=== PATIENT | male | born 1945 | race Caucasian/White ===

== ENCOUNTER 2019-12-03 08:23 | Outpatient (CLI) | payer MEDICARE, SELFPAY | END 2019-12-03 08:24 | disposition home or self-care (01) | PROVIDERS: PCP Family Medicine; Visit Provider Internal Medicine Gastroenterology | DX: Z01.818 Encounter for other preprocedural examination (principal); Z11.59 Encounter for screening for other viral diseases | CPT/HCPCS: 87635; U0003 ==

== ENCOUNTER 2019-12-06 01:32 | Day surgery (SDC) | payer MEDICARE, SELFPAY ==
[2019-11-29 13:46] VITALS: BMI 29.3
[2019-12-06 06:23] VITALS: BP 157/89; PULSE 71; RESP 18; TEMP 36.9; O2SAT 99
[2019-12-06] MEDS: LACTATED RINGERS 1,000 ML 150 ML IV CONT (06:37)
--- NOTE | 2019-12-06 06:53 | WPDANESEPPF ---
Anes - Initial Pre Proc Eval Procedure: Operation Date: 12/06/19 07:30 Proposed Procedures p Screening Colonoscopy - Elia Jack MD Date/Time: 12/06/19 06:53 Surgeon: Elia Jack MD Pre Op Diagnosis: Neoplasm Screening Patient Data Age: 74 Gender: M Height: 1.7 m Weight: 83.2 kg Last Vital Signs Temp 36.9 C 12/06/19 06:23 Pulse 71 12/06/19 06:23 Resp 18 12/06/19 06:23 BP 157/89 H 12/06/19 06:23 Pulse Ox 99 12/06/19 06:23 Allergies Allergy/AdvReac Type Severity Reaction Status Date / Time Penicillins Allergy Unknown Unknown Verified 12/06/19 06:20 Home Medications Medication Instructions Recorded Confirmed Type albuterol sulfate 1 puff INHALATION QID PRN 11/29/19 11/29/19 History finasteride 5 mg PO DAILY 11/29/19 11/29/19 History magnesium 30 mg PO DAILY 11/29/19 11/29/19 History tamsulosin 0.4 mg PO DAILY 11/29/19 11/29/19 History ibuprofen 600 mg PO TID PRN 12/06/19 12/06/19 History methocarbamol 750 mg PO HS PRN 12/06/19 12/06/19 History omeprazole 40 mg PO DAILY 12/06/19 12/06/19 History Patient hx anesthesia problems: none Family hx anesthesia problems: none PMFSH Past Medical History Medical History (Updated 12/06/19 @ 06:54 by Murray Oneill DO) BPH (benign prostatic hyperplasia) Degenerative arthritis of knee, bilateral GOPI (obstructive sleep apnea) CPAP Social History Social History Smoking status: Former smoker Second hand tobacco smoke exposure: No Smoking end date: 07/18/06 Alcohol intake: never Additional living arrangements comments: -Sheri Hammonds Anes - Eval Final PreProcedure Day of Procedure 12/06/19 06:53 Patient weight: overweight Heart: regular rate and rhythm Lungs: clear to auscultation and normal air movement Airway: Mallampati scale class II Neurological: alert and oriented Last oral intake: >/= 8 hours ASA classification: III Emergent: no Anesthetic plan: proceed Anesthesia type and monitoring: general GIVS and standard monitoring Informed Consent: The patient's anesthetic plan and its attendant risks and benefits were discussed with the patient/family/POA. Questions were solicited and answers provided to the satisfaction of the patient/family/POA.
--- NOTE | 2019-12-06 07:00 | PM.HPGS ---
History of Present Illness History of Present Illness Consent: Risks, benefits, and alternatives have been discussed and questions answered. Patient agrees to proceed with procedure. Chief complaint: Neoplasm Screening Narrative: Mal Hammonds is a 74 year old W male Referred for screening colonoscopy secondary to family history of colon cancer in his brother diagnosed at age 62. Patient's last colonoscopy was 5 years ago. Patient is asymptomatic. [facility] Past Medical History Medical History BPH (benign prostatic hyperplasia) Degenerative arthritis of knee, bilateral GOPI (obstructive sleep apnea) CPAP Family History Family History Mother Hypertension Family history of diabetes mellitus in first degree relative Family history of coronary artery disease Sibling Hypertension Carcinoma of colon Family history of diabetes mellitus in first degree relative Family history of coronary artery disease Family history of lung cancer Patient's brother is Social History Social History Smoking status: Former smoker Second hand tobacco smoke exposure: No Smoking end date: 07/18/06 Alcohol intake: never Additional living arrangements comments: -Sheri Hammonds Meds Home Medications and Allergies Home Medications Medication Instructions Recorded Confirmed Type albuterol sulfate 1 puff INHALATION QID PRN 11/29/19 11/29/19 History finasteride 5 mg PO DAILY 11/29/19 11/29/19 History magnesium 30 mg PO DAILY 11/29/19 11/29/19 History tamsulosin 0.4 mg PO DAILY 11/29/19 11/29/19 History ibuprofen 600 mg PO TID PRN 12/06/19 12/06/19 History methocarbamol 750 mg PO HS PRN 12/06/19 12/06/19 History omeprazole 40 mg PO DAILY 12/06/19 12/06/19 History Allergies Allergy/AdvReac Type Severity Reaction Status Date / Time Penicillins Allergy Unknown Unknown Verified 12/06/19 06:20 Vital Signs Vital Signs - 24 hr 12/06/19 06:23 Temperature 36.9 C Pulse Rate 71 Respiratory Rate 18 Blood Pressure 157/89 H Pulse Oximetry 99 Exam Const: Orientation/consciousness: patient oriented x3 Resp: Auscultation: clear to auscultation bilaterally Cardio: Rate: regular rate Rhythm: regular rhythm Heart sounds: no murmurs GI: GI Palp: Yes Soft to palpation, No Tenderness to palpation present (GI), Yes No hepatosplenomegaly present and No Palpable mass present Auscultation: normal bowel sounds Neuro: General: patient oriented x3 and no focal motor deficits Extrem: General: no pedal edema Assessment and Plan Additional Plan Screening colonoscopy in high risk patient with a family history of colon cancer in brother
[2019-12-06 07:54] VITALS: BP 102/47; PULSE 60; RESP 18; O2SAT 98
[2019-12-06 08:04] VITALS: BP 94/54; PULSE 60; RESP 18; O2SAT 99
[2019-12-06 08:14] VITALS: BP 117/62; PULSE 61; RESP 18; O2SAT 99
== END 2019-12-06 08:22 | disposition home or self-care (01) ==
PROVIDERS: PCP Family Medicine; Visit Provider Internal Medicine Gastroenterology
PROC: 0DJD8ZZ Inspection of Lower Intestinal Tract, Via Natural or Artificial Opening Endoscopic (ICD-10-PCS; CPT 45378; principal; 2019-12-06 07:30)
DX: Z12.11 Encounter for screening for malignant neoplasm of colon (principal); K64.8 Other hemorrhoids; K64.4 Residual hemorrhoidal skin tags; K57.30 Diverticulosis of large intestine without perforation or abscess without bleeding; Z80.0 Family history of malignant neoplasm of digestive organs; G47.33 Obstructive sleep apnea (adult) (pediatric); N40.0 Benign prostatic hyperplasia without lower urinary tract symptoms; M17.0 Bilateral primary osteoarthritis of knee; Z87.891 Personal history of nicotine dependence
CPT/HCPCS: G0105; 87635; C9803; J2704; J7120; U0003

== ENCOUNTER → 2020-01-22 11:55 | Outpatient (CLI) | payer MEDICARE, SELFPAY ==
--- NOTE | ~2020-01-22 | XR_ITS ---
XR lumbar spine 2-3V DATE: 01/22/2020 13:21 INDICATION: Acute midline low back pain TECHNIQUE: AP, lateral and coned lateral lumbosacral views COMPARISON: None FINDINGS: Normal alignment of the lumbar spine. No fracture or bone destruction. No spondylolisthes is. Diffuse osteopenia. There is prominent degenerative disc disease at T12-L1, L1-2 and L5-S1. Moderate degenerative disc disease at L2-3. No fracture or bone destruction. No spondylolisthesis. The sacroiliac joints are intact. IMPRESSION: Degenerative changes; no fracture Reviewed, dictated and finalized at location B.
== END ==
PROVIDERS: PCP Family Medicine; Visit Provider Family Medicine
DX: M54.5 Low back pain (principal)
CPT/HCPCS: 72100

== ENCOUNTER 2022-05-17 17:43 | Emergency (ER) | payer MEDICARE, SELFPAY ==
--- NOTE | ~2022-05-17 | XR_ITS ---
EXAM: XR hand RT min 3V DATE: 05/17/2022 18:39 HISTORY: dog bite dorsal rt ulnar 5th metacarpal area . COMPARISON: 07/26/2019. FINDINGS: Mildly decreased mineralization. No fracture or dislocation. No lytic or blastic lesion. S cattered osteoarthritic changes, severe at the trapeziometacarpal joint. No erosion or periosteal harvey nge. Chondrocalcinosis. IMPRESSION: No acute osseous finding in the right hand. Reviewed, dictated and finalized at location K.
[2022-05-17 18:05] VITALS: BP 158/74; PULSE 67; RESP 16; TEMP 35.9; O2SAT 98
--- NOTE | 2022-05-17 18:15 | ED.ANIMALBIT ---
HPI - Animal Bite General Chief Complaint: Animal Bite Stated Complaint: Right Hand Animal Bite Time Seen by Provider: 05/17/22 18:15 Source: patient, RN notes reviewed and old records reviewed Mode of arrival: ambulatory Limitations: no limitations History of Present Illness HPI narrative: 77-year-old male presents to the [facility] with a right hand wound from a dog bite. Puncture wounds noted to the dorsal aspect right hand. Unsure of tetanus. Bruising swelling noted to the dorsal aspect of her hand. Has full range of motion. Capillary refill under 2 seconds in all 5 fingers. Sensation intact in all 5 fingers. 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 Related Data Patient tetanus UTD: No Home Medications Medication Instructions Recorded Confirmed albuterol sulfate 90 mcg/actuation 1 puff inhalation QID PRN 11/29/19 05/17/22 aerosol inhaler Shortness Of Breath finasteride 5 mg tablet 5 mg PO DAILY 11/29/19 05/17/22 magnesium 30 mg tablet 30 mg PO DAILY 11/29/19 05/17/22 tamsulosin 0.4 mg capsule 0.4 mg PO DAILY 11/29/19 05/17/22 ibuprofen 600 mg tablet 600 mg PO TID PRN Pain 12/06/19 05/17/22 methocarbamol 750 mg tablet 750 mg PO HS PRN Sleep 12/06/19 05/17/22 omeprazole 40 mg capsule,delayed 40 mg PO DAILY 12/06/19 05/17/22 release montelukast 10 mg tablet 10 mg PO DAILY 05/12/21 05/17/22 Allergies Allergy/AdvReac Type Severity Reaction Status Date / Time Penicillins Allergy Unknown Unknown Verified 05/17/22 18:12 Review of Systems Review of Systems: All systems reviewed & are unremarkable except as noted in HPI and below Constitutional: Constitutional: Reports no additional constitutional complaints, Denies chills and Denies fever(s) Eyes: Eyes: Reports no additional eye complaints ENT: Reports system reviewed and no additional complaints, except as documented Cardiovascular: Cardiovascular: Reports no additional cardiovascular complaints Respiratory: Respiratory: Reports no additional respiratory complaints Gastrointestinal: Gastrointestinal: Reports no additional gastrointestinal complaints Musculoskeletal: Musculoskeletal: Reports as per HPI Integumentary/Breasts: Skin/Breast: Reports as per HPI Neurologic: Reports system reviewed and no additional complaints, except as documented Psychiatric: Psychiatric: Reports no additional psychiatric complaints Allergic/Immunologic: Allergic/Immunologic: Reports no additional allergic/immunologic complaints PMFSH Past Medical History Medical History BPH (benign prostatic hyperplasia) Degenerative arthritis of knee, bilateral GOPI (obstructive sleep apnea) CPAP Family History Family History Mother Hypertension Family history of diabetes mellitus in first degree relative Family history of coronary artery disease Sibling Hypertension Carcinoma of colon Family history of diabetes mellitus in first degree relative Family history of coronary artery disease Family history of lung cancer Patient's brother is Social History Social History Smoking status: Former smoker Second hand tobacco smoke exposure: No Smoking end date: 07/18/06 Alcohol intake: never Additional living arrangements comments: -Sheri Hammonds Comments At the time of my signature, I reviewed and agree with the nursing past medical, surgical, social, and family history. There is no relevant family history pertinent to the patient complaint. Exam Const: General: healthy appearing, no acute distress, alert and well nourished Nutritional Appearance: well nourished Orientation/consciousness: patient oriented x3 Limitations: no limitations HENMT: Head: normal to inspection Ears: external ears normal Eyes: General: appearance normal, both eyes and all related structures Pupils: Equal, round and re
[2022-05-17] MEDS: TETANUS/DIPHTHERIA TOXOIDS ADSORB 0.5 ML VIAL (*BKC) IM (18:49)
== END 2022-05-17 19:15 | disposition home or self-care (01) ==
PROVIDERS: Emergency Provider Nurse Practitioner; PCP Family Medicine
DX: S61.451A Open bite of right hand, initial encounter (principal); Z79.1 Long term (current) use of non-steroidal anti-inflammatories (NSAID); Z87.891 Personal history of nicotine dependence; Z23 Encounter for immunization; W54.0XXA Bitten by dog, initial encounter
CPT/HCPCS: 73130; 90471; 90714; 99212; G0463

== ENCOUNTER → 2022-10-28 09:55 | Outpatient (CLI) | payer MEDICARE, SELFPAY ==
--- NOTE | ~2022-10-28 | MR_ITS ---
MRI of the left knee Clinical history: Pain Technique: Coronal proton density and proton density-weighted images, sagittal proton-density and T2 fat-sat images, and axial proton-density fat-saturated images were acquired. Findings: Anterior and posterior cruciate ligaments are intact. Medial collateral ligament and the la teral collateral ligament complex are intact. Popliteus tendon is intact. There is large horizontal tear of the posterior horn of the medial meniscus, with complex tearing ext ending into the body segment. Body segment is somewhat macerated and diminutive. No lateral meniscal tear identified. There is extensive high-grade chondromalacia on both sides of the medial compartment. There is focal high-grade chondromalacia the inferior aspect of the central femoral trochlea. There is high-grade ch ondral lesion along the medial patellar facet. Bone marrow signals are unremarkable. Extensor mechanism is intact. Small joint effusion present. There is a small ganglion cyst versus les s likely meniscal cyst extending posterior to the PCL. Impression: Large horizontal tear of the posterior medial meniscus, with complex tearing and maceration of the estevan dy segment. High-grade chondromalacia of the medial and patellofemoral compartments, as detailed above. Small ganglion cyst versus less likely meniscal cyst extending posterior to the PCL. Reviewed, dictated and finalized at location M. Impression: Large horizontal tear of the posterior medial meniscus, with complex tearing an d maceration of the body segment. High-grade chondromalacia of the medial and patellofemoral compartments, as de tailed above. Small ganglion cyst versus less likely meniscal cyst extending posterior to the PCL.
== END ==
PROVIDERS: PCP Orthopaedic Surgery; Visit Provider Orthopaedic Surgery
DX: S83.242A Other tear of medial meniscus, current injury, left knee, initial encounter (principal); M22.42 Chondromalacia patellae, left knee; T14.90XA Injury, unspecified, initial encounter
CPT/HCPCS: 73721

== ENCOUNTER → 2023-04-05 10:55 | Outpatient (CLI) | payer MEDICARE, SELFPAY ==
--- NOTE | ~2023-04-05 | MR_ITS ---
MRI of the right shoulder Technique: Axial proton-density fat-sat images, coronal proton density fat-sat and T2 fat-sat images, and sagittal T1-weighted and T2 fat-sat images were acquired. Clinical History: Calcific tendinitis Findings: There is mild AC joint degenerative change. Coracoclavicular, coracoacromial, and coracohum eral ligaments appear intact. There is full-thickness tear involving the posterior portion of the infraspinatus tendon and anterior portion of the infraspinatus tendon at the distal insertions, with the area of full-thickness tear m easuring approximately 1.0 x 1.0 cm. There is background moderate supraspinatus and infraspinatus ten dinosis. There is a small calcific deposit at the distalmost aspect of the infraspinatus tendon, comp atible with calcific tendinitis. Subscapularis tendon is intact with mild tendinosis. Tendon of the long head of the biceps is intact. No labral tear identified. Inferior glenohumeral ligament is intact. There is no significant glenohumeral joint effusion. No deg enerative change of the glenohumeral joint. No muscle atrophy or edema. Impression: 1.0 x 1.0 cm area of full-thickness tearing involving the posterior portion of the supraspinatus tend on and anterior portion infraspinatus tendon at their distal insertions. Small focus of calcific tendinitis at the posterior, distal insertion of the infraspinatus tendon. Moderate background rotator cuff tendinosis. Reviewed, dictated and finalized at [facility]. Impression: 1.0 x 1.0 cm area of full-thickness tearing involving the posterior portion of the supraspinatus tendon and anterior portion infraspinatus tendon at their dis emily insertions. Small focus of calcific tendinitis at the posterior, distal insertion of the in fraspinatus tendon. Moderate background rotator cuff tendinosis.
== END ==
PROVIDERS: PCP Orthopaedic Surgery; Visit Provider Orthopaedic Surgery
DX: M75.31 Calcific tendinitis of right shoulder (principal)
CPT/HCPCS: 73221

== ENCOUNTER 2023-05-16 00:36 | Day surgery (SDC) | payer MEDICARE, SELFPAY ==
[2023-05-09 15:07] VITALS: BMI 29.3
--- NOTE | 2023-05-09 15:08 | PC.NURSE ---
Report to the Outpatient Waiting Room, entrance under the green pavilion located off [facility], at time _0700_ on date _[id number]_. Planned Procedure Time: _0900_. Time changes happen often and if your time is changed the preop area will call you the afternoon before. - You and your visitor will be asked to self-screen and do not enter if you have any COVID symptoms. - A mask is optional within the hospital at this time. Patients may have clear liquids (water, carbonated beverages, clear teas, apple juice) until 3 hours prior to surgery with a maximum of 20 ounces. - No food from midnight until time of surgery Take the following medications with a SIP of water the morning of surgery: __None DO NOT STOP ANY OF YOUR OTHER PRESCRIPTION MEDICATIONS PRIOR TO SURGERY ?EXCEPT THE FOLLOWING Medications to discontinue per physician ___All vitamins and supplements Date to take last [id number] Ramirez's office about Ibuprofen if need to hold. Please no make-up, nail new zealander, hairspray, perfume, deodorant, or body powder the day of surgery. No jewelry (including any body piercings) or valuables the day of surgery, leave them at home. Please take a shower or bath the night before, or the morning of, surgery with an antibacterial soap. Wear comfortable, loose fitting clothing. - Jewelry must be removed prior to entering the operating room. Rings and piercings that are not removed may be cut off. - The hospital will not accept responsibility for valuables. - Please leave all valuables, including medications, at home the day of surgery. If you are going home after surgery, a licensed driver operator must drive you home. - NO public transportation without another adult if you receive anesthesia. - We recommend that an adult stay with you for 24 hours following discharge. - We also recommend that you do not drive, make important decision, drink alcoholic beverages, or take any drugs that were not prescribed by your health care provider for at least 24 hours after your discharge time. Follow any additional instructions given to you from your surgeon. If you or anyone in your household have experienced Covid symptoms in the past week, please notify your surgeon or the nurse liaison at the phone number below for possible testing. Telephone instructions given to __Mal___and asked if any additional questions and then verbalized understanding. Patient advised to call surgeon office or pre surgery nurse liaison [phone] if any additional questions.
[2023-05-16] VITALS (7 sets, daily range): BP systolic 121–153; BP diastolic 79–91; PULSE 63–73; RESP 16–20; TEMP 36.1–36.3; O2SAT 97–100
[2023-05-16] MEDS: LACTATED RINGERS 1,000 ML 30 ML IV CONT ×2 (08:00→11:14)
[2023-05-16] MEDS: KETOROLAC 15 MG/ML VIAL (*BKC) IV PUSH (08:00)
[2023-05-16] MEDS: ACETAMINOPHEN 500 MG TABLET 1000 MG PO (08:00)
--- NOTE | 2023-05-16 08:49 | WPDANESEPPF ---
Anes - Initial Pre Proc Eval Procedure: Operation Date: 05/16/23 09:30 Proposed Procedures p Right Rotator Cuff Repair with Distal Clavicle Excision - Tapan Ramirez MD Date/Time: 05/16/23 08:49 Surgeon: Tapan Ramirez MD Pre Op Diagnosis: Rot Cuff Tear, AC Arthritis Patient Data Age: 78 Gender: M Height: 1.7 m Weight: 85 kg Allergies Allergy/AdvReac Type Severity Reaction Status Date / Time Penicillins Allergy Unknown Unknown Verified 05/12/23 09:09 Home Medications Medication Instructions Recorded Confirmed Type albuterol sulfate 90 mcg/actuation 1 puff inhalation QID PRN 11/29/19 05/12/23 History aerosol inhaler Shortness Of Breath ibuprofen 600 mg tablet 600 mg PO TID PRN Pain 12/06/19 05/12/23 History methocarbamol 750 mg tablet 750 mg PO HS PRN Sleep 12/06/19 05/12/23 History omeprazole 40 mg capsule,delayed 40 mg PO DAILY 12/06/19 05/12/23 History release montelukast 10 mg tablet 10 mg PO DAILY 05/12/21 05/12/23 History ascorbic acid (vitamin C) 1,000 mg 1 g PO DAILY 05/09/23 05/12/23 History tablet (Vitamin C) calcium 500 mg tablet 500 mg PO DAILY 05/09/23 05/12/23 History finasteride 5 mg tablet 5 mg PO DAILY 05/09/23 05/12/23 History glucosam 750 mg-chondroi 100 1 tablet PO DAILY 05/09/23 05/12/23 History mg-hyalur 1.65 mg-CF borate 108 mg tablet ([employer]) magnesium 200 mg tablet 200 mg PO DAILY 05/09/23 05/12/23 History multivitamin 1 tablet PO DAILY 05/09/23 05/12/23 History omega 7-bcx-nho-fish oil 1,200 mg 1 cap PO DAILY 05/09/23 05/12/23 History (144 mg-216 mg) capsule (Fish Oil) Patient hx anesthesia problems: none Family hx anesthesia problems: none Results Review: All pre-operative results and documents have been reviewed as part of the pre-operative evaluation. 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, bilateral GOPI (obstructive sleep apnea) CPAP Right rotator cuff tear Surgical History Surgical History History of neck surgery History of tonsillectomy Family History Family History Mother Hypertension Family history of diabetes mellitus in first degree relative Family history of coronary artery disease Sibling Hypertension Carcinoma of colon Family history of diabetes mellitus in first degree relative Family history of coronary artery disease Family history of lung cancer Patient's brother is Social History Social History Years smoked: 20 Smoking status: Former smoker Tobacco type: cigarettes Second hand tobacco smoke exposure: No Smoking end date: 05/09/13 Alcohol intake: never Substance use type: does not use Lack of Transportation: No Lack of Food: Never True Current Housing: I Have Housing Concerned About Future Housing: No Difficulty Paying Gas/Electric Bills: No Difficulty Paying for Meds: No Currently Unemployed: No Education: High School Diploma/GED Difficulty w/ Childcare or Family Care: No Living arrangements: with family Additional living arrangements comments: -Sheri Hammonds Occupation/Education: retired Spiritual care concerns: No Anes - Eval Final PreProcedure Day of Procedure 05/16/23 08:49 Patient weight: overweight Heart: regular rate and rhythm Lungs: decreased breath sounds Airway: Mallampati scale class II Neurological: alert and oriented Last oral intake: >/= 8 hours ASA classification: III Emergent: no Anesthetic plan: proceed Anesthesia type and monitoring: general ETT and standard monitoring Results Review: All pre-operative results and d
--- NOTE | 2023-05-16 09:02 | WPDHPUPDATE1 ---
History and Physical Update Update Date/Time: 05/16/23 09:02 History and Physical has been reviewed, including an updated exam of the patient. There are NO changes in the patient's condition. Risks, benefits, and alternatives have been discussed and questions answered. Patient agrees to proceed with procedure.
--- NOTE | 2023-05-16 09:40 | WPDANESPNB ---
Anes - Peripheral Nerve Block Date/Time: 05/16/23 09:40 I have discussed with the patient/family/POA the placement of a peripheral nerve block for post-operative pain management, including associated risks, benefits, complications, and side effects. Alternative methods of post-operative analgesia were detailed. Questions were solicited and answers provided to the satisfaction of the patient/family/POA. Time-Out: A pre-procedural Time-Out was completed immediately before starting the procedure and confirmed: Patient Identification, Site, Procedure, Patient Position and the Availability of Requisite Equipment. Clinical Indications: Acute post-operative pain management requested by the operative surgeon. Nerve Block Insertion Note Anes-nerve block: interscalene right Patient position: other (sitting) Skin prep: chlorhexidine Needle: 22 gauge, stimulating, insulated echogenic needle. Needle length: 50 mm Technique: nerve stimulation lost at (mA) and ultrasound Technique comment: fent 100mcg Injectate: bupivacaine 0.5% with epi 5 mcg/ml (30ml no epi) and dexamethasone (mg) (4) Observations: tolerated well Complications: none Procedure start time:: 930 Procedure end time:: 937
[2023-05-16] MEDS: ceFAZolin 2 GM/D5W 50 ML 2 GM/50 ML BAG IVPB (09:44)
[2023-05-16] MEDS: BUPIVACAINE/EPINEPHRINE 0.5% 10 ML VIAL INFILTRATE (10:23)
--- NOTE | 2023-05-16 11:09 | W.PM.PROC2 ---
Procedure Note - Detailed Date of Procedure 05/16/23 Pre-op Diagnosis Right rotator cuff tear with AC joint arthritis Post-op Diagnosis Same Procedure Performed Right rotator cuff repair with distal clavicle excision Surgeon Tapan Ramirez MD Armature Winder Repair Helper Kathrine Wilde Anesthesia General and Regional Description of Procedure Patient was identified and proper site identified. In the preop holding area the anesthesia team performed a right Upper extremity block. He was then taken to the operating room and transferred to the or table taking care to pad the torso and extremities. After general anesthetic induction and intubation, he was put in a semi beach chair position in the usual manner for a right Shoulder procedure. His head was secured taking care to neither rotate nor extend the head and neck. The right upper extremity was prepped and draped free in usual sterile fashion. The subcutaneous tissue in the area of the incision was injected with 10 cc of 0.25% Marcaine and epinephrine solution. An oblique anterior incision was made extending from the AC joint distally in line with the fibers of the deltoid. Subcutaneous tissue was sharply dissected down to the deltoid fascia. The deltoid was dissected off the anterior portion of the acromion in the distal end of the clavicle. A 2 cm split was made at the junction between the anterior and middle thirds of the deltoid. Using the microsagittal saw the last 8 mm of clavicle removed. The saw was also used to perform the acromioplasty and then the undersurface of the acromion was rasped smooth. There is an abundance of thickened bursa which was sharply debrided to allow for visualization of the entire cuff. There was a tear of the supra and infraspinatus off the greater tuberosity with an eroded area. Large spurs noted on the greater tuberosity. The spurs were do both in the tuberosity prepared for repair. Tendon edges were freshened up. The repair was carried out in a double row fashion securing the tendon back to the greater tuberosity. [id number] repair was also carried out for the intertendinous portion. This is all done with 2. Ethibond suture. The wound was irrigated with sterile NaCl solution. The deltoid was repaired back to the acromion with 2. Ethibond suture passed through bone and the remainder of the deltoid repair carried out with 2. Vicryl. Subcutaneous tissue was reapproximated with 2. Strata fix and then tissue adhesive used for the skin. Sterile dressing was applied. There were no known intraoperative complications, and perioperative antibiotics were administered. Estimated Blood Loss 15 Drains No Packing No Pathology None sent Complications No immediate complications Condition Stable Disposition PACU [facility] Billing Surgery - Charge Forward: Surgery Billing ([id number]; [id number])
== END 2023-05-16 13:40 | disposition home or self-care (01) ==
PROVIDERS: PCP Family Medicine; Visit Provider Orthopaedic Surgery
PROC: (CPT 23420; principal; 2023-05-16 09:30)
DX: M75.101 Unspecified rotator cuff tear or rupture of right shoulder, not specified as traumatic (principal); M19.011 Primary osteoarthritis, right shoulder; M75.31 Calcific tendinitis of right shoulder; N40.0 Benign prostatic hyperplasia without lower urinary tract symptoms; G47.33 Obstructive sleep apnea (adult) (pediatric); G89.18 Other acute postprocedural pain; Z87.891 Personal history of nicotine dependence; Z79.51 Long term (current) use of inhaled steroids; Z80.0 Family history of malignant neoplasm of digestive organs; Z80.1 Family history of malignant neoplasm of trachea, bronchus and lung; Z82.49 Family history of ischemic heart disease and other diseases of the circulatory system
CPT/HCPCS: 64415; 23412; 23120; A4565; A9270; J0330; J0690; J1100; J1885; J2405; J2704; J3010; J7120

== ENCOUNTER → 2023-06-27 12:25 | Outpatient (CLI) | payer MEDICARE, SELFPAY ==
--- NOTE | ~2023-06-27 | XR_ITS ---
EXAMINATION: XR abdomen/kub 1V INDICATION: Hematuria, calculus of the kidney TECHNIQUE: Supine views of the abdomen were obtained on 2 radiographs. COMPARISON: 01/22/2020 FINDINGS: There is a stable 4 mm stone left mid kidney. No definite additional urolithiasis is identi fied. Pelvic calcifications likely reflect phleboliths. The bowel gas pattern is normal. There is mil d osteoarthritis. IMPRESSION: 1. Stable left nephrolithiasis. Reviewed, dictated and finalized at location B. CTOR OF HEAD START
== END ==
PROVIDERS: PCP Urology; Visit Provider Urology
DX: N20.0 Calculus of kidney (principal)
CPT/HCPCS: 74018

== ENCOUNTER 2023-07-05 11:31 | Outpatient (CLI) | payer MEDICARE, SELFPAY ==
[2023-07-05 12:22] LABS: INR 0.9; Prothrombin Time 12.8 Seconds (11.1-14.7)
== END 2023-07-05 11:32 | disposition home or self-care (01) ==
LOC: ANHSURGERY 11:34
PROVIDERS: PCP Family Medicine; Visit Provider Urology
DX: N20.0 Calculus of kidney (principal); Z01.818 Encounter for other preprocedural examination
CPT/HCPCS: 36415; 85610; 85730; 87086

== ENCOUNTER 2023-07-15 03:34 | Day surgery (SDC) | payer MEDICARE, SELFPAY ==
[2023-07-04 09:36] VITALS: BMI 29.8
--- NOTE | 2023-07-04 09:41 | PC.NURSE ---
PRE-OP INSTRUCTIONS, PLEASE READ CAREFULLY Report to the Outpatient Waiting Room, entrance under the green pavilion located off [facility], at time _0630_ on date _07/15/23_. Planned Procedure Time: _0830_. Time changes happen often and if your time is changed the preop area will call you the afternoon before. - You and your visitor will be asked to self-screen and do not enter if you have any COVID symptoms. - A mask is optional within the hospital at this time. Patients may have clear liquids (water, carbonated beverages, clear teas, apple juice) until 3 hours prior to surgery (0530 AM) with a maximum of 20 ounces. - No food from midnight until time of surgery Take the following medications with a SIP of water the morning of surgery: _INHALER IF NEEDED_ DO NOT STOP ANY OF YOUR OTHER PRESCRIPTION MEDICATIONS PRIOR TO SURGERY ?EXCEPT THE FOLLOWING Medications to discontinue per DR. CARRION - _IBUPROFEN 7 DAYS PRIOR TO SURGERY (PER PT), Date to take last dose 07/07/23_ Medications to discontinue per ANESTHESIA -_MULTIVITAMIN & SUPPLEMENTS 3 DAYS PRIOR TO SURGERY, Date to take last dose 07/11/23_ Please no make-up, nail amharic, hairspray, perfume, deodorant, or body powder the day of surgery. No jewelry (including any body piercings) or valuables the day of surgery, leave them at home. Please take a shower or bath the night before, or the morning of, surgery with an antibacterial soap. Wear comfortable, loose fitting clothing. Children are encouraged to wear pajamas. - Jewelry must be removed prior to entering the operating room. Rings and piercings that are not removed may be cut off. - The hospital will not accept responsibility for valuables. - Please leave all valuables, including medications, at home the day of surgery. If you are going home after surgery, a licensed after school driver must drive you home. - NO public transportation without another adult if you receive anesthesia. - We recommend that an adult stay with you for 24 hours following discharge. - We also recommend that you do not drive, make important decision, drink alcoholic beverages, or take any drugs that were not prescribed by your health care provider for at least 24 hours after your discharge time. Follow any additional instructions given to you from your surgeon. If you or anyone in your household have experienced Covid symptoms in the past week, please notify your surgeon or the nurse liaison at the phone number below for possible testing. Telephone instructions given to _PATIENT_and asked if any additional questions and then verbalized understanding. Patient advised to call surgeon office or pre surgery nurse liaison [phone] if any additional questions.
[2023-07-15] VITALS (8 sets, daily range): BP systolic 127–155; BP diastolic 62–103; PULSE 60–73; RESP 12–18; TEMP 36–36.3; O2SAT 98–100
--- NOTE | ~2023-07-15 | XR_ITS ---
EXAMINATION: XR abdomen/kub 1V DATE: 07/15/2023 06:29 INDICATION: Kidney stone. TECHNIQUE: A supine view of the abdomen was obtained. COMPARISON: Radiographs 06/27/2023 FINDINGS: There are no dilated loops of bowel. Calcifications in the pelvis are likely phleboliths. T he kidneys are obscured by bowel. There is a 7 mm stone in left kidney. IMPRESSION: 1. 7 mm stone in left kidney. Reviewed, dictated and finalized at location A. WORKER
--- NOTE | 2023-07-15 06:33 | WPDHPUPDATE1 ---
History and Physical Update Update Date/Time: 07/15/23 06:33 History and Physical has been reviewed, including an updated exam of the patient. There are NO changes in the patient's condition. Risks, benefits, and alternatives have been discussed and questions answered. Patient agrees to proceed with procedure.
--- NOTE | 2023-07-15 07:26 | WPDANESEPPF ---
Anes - Initial Pre Proc Eval Procedure: Operation Date: 07/15/23 08:30 Proposed Procedures p Left Renal Extracorporeal Shock Wave Lithotripsy - Forest Schroeder MD Date/Time: 07/15/23 07:26 Surgeon: Forest Schroeder MD Pre Op Diagnosis: left renal stone, hematuria Patient Data Age: 78 Gender: M Height: 1.7 m Weight: 85 kg Last Vital Signs Temp 36.3 C L 07/15/23 07:08 Pulse 73 07/15/23 07:08 Resp 16 07/15/23 07:08 BP 140/81 07/15/23 07:08 Pulse Ox 98 07/15/23 07:08 O2 Del Method Room Air 07/15/23 07:08 Allergies Allergy/AdvReac Type Severity Reaction Status Date / Time Penicillins Allergy Unknown Unknown Verified 07/15/23 06:42 Home Medications Medication Instructions Recorded Confirmed Type albuterol sulfate 90 mcg/actuation 1 puff inhalation QID PRN 11/29/19 07/04/23 History aerosol inhaler Shortness Of Breath ibuprofen 600 mg tablet 600 mg PO TID PRN Pain 12/06/19 07/04/23 History methocarbamol 750 mg tablet 750 mg PO HS PRN Sleep 12/06/19 07/04/23 History ascorbic acid (vitamin C) 1,000 mg 1 g PO DAILY 05/09/23 07/04/23 History tablet (Vitamin C) calcium 500 mg tablet 500 mg PO DAILY 05/09/23 07/04/23 History glucosam 750 mg-chondroi 100 1 tablet PO DAILY 05/09/23 07/04/23 History mg-hyalur 1.65 mg-CF borate 108 mg tablet (Move [facility] [employer] magnesium 200 mg tablet 200 mg PO DAILY 05/09/23 07/04/23 History multivitamin 1 tablet PO DAILY 05/09/23 07/04/23 History dutasteride 0.5 mg capsule 0.5 mg PO DAILY 07/04/23 07/04/23 History Patient hx anesthesia problems: none Family hx anesthesia problems: none Results Review: All pre-operative results and documents have been reviewed as part of the pre-operative evaluation. 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, bilateral History of kidney infection GOPI (obstructive sleep apnea) CPAP Surgical History Surgical History Arthritis of right acromioclavicular joint Distal clavicle excision with rotator cuff repair May 16, 2023 History of neck surgery History of tonsillectomy Right rotator cuff tear Right rotator cuff repair with distal clavicle excision May 16, 2023 Family History Family History Mother Hypertension Family history of diabetes mellitus in first degree relative Family history of coronary artery disease Sibling Hypertension Carcinoma of colon Family history of diabetes mellitus in first degree relative Family history of coronary artery disease Family history of lung cancer Patient's brother is Social History Social History Smoking packs per day: 0.5 Smoking cigarettes per day: 10.0 Years smoked: 20 Smoking pack-years: 10.00 Smoking status: Former smoker Tobacco type: cigarettes Second hand tobacco smoke exposure: No Smoking end date: 05/09/13 Alcohol intake: never Substance use: never Substance use type: does not use Lack of Transportation: No Lack of Food: Never True Current Housing: I Have Housing Concerned About Future Housing: No Difficulty Paying Gas/Electric Bills: No Difficulty Paying for Meds: No Currently Unemployed: No Education: High School Diploma/GED Difficulty w/ Childcare or Family Care: No Living arrangements: with family Additional living arrangements comments: -Sheri Hammonds Occupation/Education: retired Spiritual care concerns: No Anes - Eval Final PreProcedure Day of Procedure 07/15/23 07:26 Patient weight: overweight Heart: regular rate and rhythm Lungs: clear to auscultation Airway: Mallampati scale class II Neurological: a
[2023-07-15] MEDS: LACTATED RINGERS 1,000 ML 30 ML IV CONT ×2 (07:35→09:42)
[2023-07-15] MEDS: ceFAZolin 2 GM/D5W 50 ML 2 GM/50 ML BAG IVPB (08:21)
--- NOTE | 2023-07-15 08:32 | W.PM.PROC2 ---
Procedure Note - Detailed Date of Procedure 07/15/23 Pre-op Diagnosis Left renal stone, hematuria Post-op Diagnosis Same Procedure Performed Left ESWL Surgeon Forest Schroeder MD Anesthesia General Description of Procedure The patient was brought to the operative suite where he was placed in the supine position on the Dornier lithotripsy table. The focal point of the lithotripter was placed at a 5-6mm left lower pole calculus. A total of 2500 shocks were delivered at a power setting of 1-4. There appeared to be good fragmentation of the stone. The patient tolerated the procedure well and was taken to the recovery room in good condition. Drains No Packing No Pathology None sent Complications No immediate complications
[2023-07-15] MEDS: KETOROLAC 15 MG/ML VIAL (*BKC) IV PUSH (08:52)
== END 2023-07-15 10:58 | disposition home or self-care (01) ==
PROVIDERS: PCP Family Medicine; Visit Provider Urology
PROC: (CPT 50590; principal; 2023-07-15 08:30)
DX: N20.0 Calculus of kidney (principal); E29.1 Testicular hypofunction
CPT/HCPCS: 50590; 36415; 74018; 85610; 85730; 87086; J0690; J1100; J1885; J2405; J2704; J7120

== ENCOUNTER 2023-07-26 11:00 | Outpatient (CLI) | payer MEDICARE, SELFPAY ==
--- NOTE | ~2023-07-26 | XR_ITS ---
Supine and upright views of the abdomen Clinical history: Lithotripsy, renal stone COMPARISON: 07/15/2023 Findings: Bowel gas pattern is nonspecific. No evidence for obstruction or free air. Stable left nick l stone noted. No definite right renal stone. Osseous structures are intact. Impression: Stable left renal stone. Reviewed, dictated and finalized at [facility]. TOLOGIC TECHNICIAN OPERATOR/ANALYST Impression: Stable left renal stone.
== END 2023-07-26 11:01 | disposition home or self-care (01) ==
LOC: ANHIMG 11:02
PROVIDERS: PCP Family Medicine; Visit Provider Urology
DX: N20.0 Calculus of kidney (principal)
CPT/HCPCS: 74018

== ENCOUNTER 2024-01-30 15:37 | Outpatient (CLI) | payer MEDICARE, SELFPAY ==
--- NOTE | ~2024-01-30 | XR_ITS ---
XR abdomen/kub 1V Ordering provider: Forest Schroeder MD History: . Calculus of kidney . Comparison: July 26, 2023 FINDINGS: BOWEL: Fecal material is seen in the colon. Nonobstructive bowel gas pattern. ORGANOMEGALY: None. SIGNIFICANT PATHOLOGIC CALCIFICATIONS: Tiny Stone seen in the left kidney. OTHER: No free air is seen under the diaphragm. Degenerative changes of the spine. IMPRESSION: NO ACUTE ABDOMINAL FINDINGS. Small Left kidney stone unchanged. Constipation. Reviewed, dictated and finalized at location A.
== END 2024-01-30 15:38 ==
PROVIDERS: PCP Urology; Visit Provider Urology
DX: N20.0 Calculus of kidney (principal); K59.00 Constipation, unspecified
CPT/HCPCS: 74018

== ENCOUNTER 2024-06-13 10:27 | Outpatient (CLI) | payer MEDICARE, SELFPAY ==
--- NOTE | ~2024-06-13 | XR_ITS ---
XR abdomen/kub 1V Ordering provider: Forest Schroeder MD History: . KIDNEY STONE f/u left side left flank pain . Comparison: None. FINDINGS: BOWEL: Nonobstructive bowel gas pattern. ORGANOMEGALY: None. SIGNIFICANT PATHOLOGIC CALCIFICATIONS: Stone in the left kidney area is noted. OTHER: No free air is seen under the diaphragm. Narrowing of the disc T12-L1. IMPRESSION: NO ACUTE ABDOMINAL FINDINGS. Left kidney stone. Reviewed, dictated and finalized at location A. TERINTELLIGENCE AGENT
== END 2024-06-13 10:28 | disposition home or self-care (01) ==
LOC: MICIMG 10:28
PROVIDERS: PCP Urology; Visit Provider Urology
DX: N20.0 Calculus of kidney (principal)
CPT/HCPCS: 74018

== ENCOUNTER 2025-03-28 21:31 | Emergency (ER) | payer MEDICARE, SELFPAY ==
--- NOTE | ~2025-03-28 | XR_ITS ---
EXAMINATION: XR shoulder LT min 2V DATE: 03/29/2025 01:15 INDICATION: Left shoulder injury TECHNIQUE: AP internally and externally rotated, AP oblique externally rotated and transscapular Y views of the left shoulder were obtained. COMPARISON: None FINDINGS: Normal alignment. No fracture.Chondrocalcinosis along the left humeral head. There is additional subtle dystrophic calcification overlying the greater tuberosity consistent with calcific tendinitis. There is adjacent mild erosion along the greater tuberosity consistent with rotator cuff disease. Glenohumeral joint space appears relatively preserved. Mild acromioclavicular osteoarthritis. Visualized portion of the left lung is clear. Soft tissues are unremarkable. IMPRESSION: 1. Left rotator cuff calcific tendinitis and chondrocalcinosis along the left humeral head. 2. Mild left acromioclavicular osteoarthritis. Reviewed, dictated and finalized at location A. IMPRESSION: 1. Left rotator cuff calcific tendinitis and chondrocalcinosis along the left h umeral head. 2. Mild left acromioclavicular osteoarthritis.
--- NOTE | ~2025-03-28 | XR_ITS ---
Examination: XR chest 1V Clinical History: Left shoulder pain Comparison: None available Technique: Portable AP Findings: Heart size normal. Mild left basilar opacity. No acute bony abnormality. IMPRESSION: 1. Trace left basilar atelectasis and/or pleural effusion. 2. Otherwise no acute abnormality. Reviewed, dictated and finalized at location R.
[2025-03-28 22:09] VITALS: BP 157/68; PULSE 81; RESP 16; TEMP 37; O2SAT 99
[2025-03-29 00:40] VITALS: PULSE 85; RESP 13; O2SAT 98
--- NOTE | 2025-03-29 01:00 | ED.GENADULT ---
HPI - General Adult General Chief complaint: Extremity Problem,Nontraumatic Stated complaint: shoulder pain Time Seen by Provider: 03/29/25 00:52 History of Present Illness HPI narrative: This is a 80-year-old male with history of arthritis presenting for left shoulder pain. Patient says his shoulder has been hurting for several weeks. However the last 4 days it has gotten significantly worse. Feels like his gotten worse since he did yard work 4 days ago. Patient feels like he is having muscle spasms and sharp episodes of pain that come when he moves or coughs. He has been taking Motrin with minimal relief. Patient sees saw his orthopedic surgeon 1 week ago but did not bring this up. He only got injections in his knees at that time. Patient is taking care of his who has cancer. This is causing him a significant amount of distress and should pain in his shoulders for venting him from taking care of her. He is intermittently crying throughout the interview. Related Data Home Medications ?Medication ?Instructions ?Recorded ?Confirmed ?Last Taken ?Type methocarbamol 750 mg tablet 750 mg PO HS PRN Sleep 12/06/19 03/24/25 Unknown History multivitamin 1 tablet PO DAILY 05/09/23 03/24/25 Unknown History dutasteride 0.5 mg capsule 0.5 mg PO DAILY 07/04/23 03/24/25 Unknown History omeprazole 40 mg capsule,delayed 40 mg PO DAILY 10/28/23 03/24/25 Unknown History release trazodone 50 mg tablet 25 mg PO QHS PRN 04/30/24 03/24/25 Unknown History coenzyme Q10 10 mg capsule 10 mg PO BID 07/30/24 03/24/25 Unknown History omega-3 fatty acids 1,000 mg 1,000 mg PO DAILY 07/30/24 03/24/25 Unknown History capsule rosuvastatin 10 mg tablet 10 mg PO DAILY 07/30/24 03/24/25 Unknown History cholecalciferol (vitamin D3) 25 25 mcg PO DAILY 12/05/24 03/24/25 Unknown History mcg (1,000 unit) capsule ibuprofen 600 mg tablet 600 mg PO Q6H 12/05/24 03/24/25 Unknown History magnesium 200 mg tablet 400 mg PO DAILY 12/05/24 03/24/25 Unknown History Allergies Allergy/AdvReac Type Severity Reaction Status Date / Time latex Allergy Unknown skin Verified 03/28/25 22:11 irritation Penicillins Allergy Unknown Unknown Verified 03/28/25 22:11 [facility] Past Medical History Medical History History of kidney infection Calcific tendinitis of right shoulder GOPI (obstructive sleep apnea) CPAP BPH (benign prostatic hyperplasia) Degenerative arthritis of knee, bilateral Surgical History Surgical History History of lithotripsy Arthritis of right acromioclavicular joint Distal clavicle excision with rotator cuff repair May 16, 2023 Right rotator cuff tear Right rotator cuff repair with distal clavicle excision May 16, 2023 History of tonsillectomy History of neck surgery Family History Family History Mother Hypertension Family history of diabetes mellitus in first degree relative Family history of coronary artery disease Heart disease Sibling Hypertension Carcinoma of colon Family history of diabetes mellitus in first degree relative Family history of coronary artery disease Family history of lung cancer Patient's brother is Father , black lung disease No problems noted. Sibling Hypertension Social History Social History (Updated 03/20/25 @ 11:56 by Karla Gamino [facility]) Smoking packs per day: 0.5 Smoking cigarettes per day: 10.0 Years smoked: 20 Smoking pack-years: 10.00 Smoking status: Former smoker Tobacco type: cigarettes Second hand tobacco smoke exposure: No Smoking end date: 05/09/13 Alcohol intake: never Substance use: never Substance use type: does not use Do You Feel Safe in your Home?: Yes Lack of Transportation: No Lack of Food: Never True Current Housing: I Have Housing Concerned About Future Housing: No Difficulty Paying Gas/Electric Bills: No Difficulty Paying for Meds: No Currently Unemployed: No Education: High School Diploma/GED Difficulty w/ Childcare or Family Care: No Living arrangements: with family Additional living arrangements comments: -Sheri Hammonds Occupation/Education: retired 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 Gender identity (if verbalized by the patient): Male Spiritual care concerns: No Exam Narrative: APPEARANCE: No apparent distress. Head: atraumatic. EYES: EOMI, NOSE: Atraumatic NECK: Trachea midline RESPIRATORY: No increased rate of breathing CARDIOVASCULAR: RRR, ABDOMINAL: Non-distended MUSCULOSKELETAl: Focal exam of the left shoulder revealed no obvious deformities swelling or bruising. Point tenderness over the posterior deltoid and the patient flinches when touched. NEURO: Alert. Moving 4/4 extremities SKIN:: Warm, dry. Normal color PSYCHIATRIC: Normal affect Course Vital Signs Vital signs: Vital Signs Temperature 98.6 F 03/28/25 22:09 Pulse Rate 81 03/28/25 22:09 Respiratory Rate 16 03/28/25 22:09 Blood Pressure 157/68 H 03/28/25 22:09 Pulse Oximetry 99 03/28/25 22:09 Oxygen Delivery Room Air 03/28/25 22:09 Temperature 98.6 F 03/28/25 22:09 Pulse Rate 85 03/29/25 00:40 Respiratory Rate 13 03/29/25 00:40 Blood Pressure 157/68 H 03/28/25 22:09 Pulse Oximetry 98 03/29/25 00:40 Oxygen Delivery Room Air 03/29/25 00:40 Medical Decision Making MDM Narrative Medical decision making narrative: -Course: 80-year-old male with history of osteoarthritis presenting with atraumatic left shoulder pain. Point tenderness over the posterior deltoid. X-rays of the chest and shoulder with no acute findings. Patient given pain medication. -DDX includes but is not limited to: Arthritis, muscle spasm, calcific tendinitis, impingement syndrome Vital Signs Vital Signs: Vital Signs Temperature 98.6 F 03/28/25 22:09 Pulse Rate 81 03/28/25 22:09 Respiratory Rate 16 03/28/25 22:09 Blood Pressure 157/68 H 03/28/25 22:09 Pulse Oximetry 99 03/28/25 22:09 Oxygen Delivery Room Air 03/28/25 22:09 Temperature 98.6 F 03/28/25 22:09 Pulse Rate 85 03/29/25 00:40 Respiratory Rate 13 03/29/25 00:40 Blood Pressure 157/68 H 03/28/25 22:09 Pulse Oximetry 98 03/29/25 00:40 Oxygen Delivery Room Air 03/29/25 00:40 Discharge Plan Discharge Clinical Impression: Acute shoulder pain Patient Disposition: Home Condition: Stable Instructions: Antibiotic Form, Shoulder Pain (ED) Additional Instructions: You were seen in the emergency department for shoulder pain. Please use Motrin Tylenol for pain. Please use lidocaine patches and muscle relaxers for spasms. Please call your orthopedic surgeon and arrange follow-up in the next 48-72 hours. If you develop severe pain or weakness urine please return to the ED for re-evaluation Patient Language: [place] Islander Prescriptions: New methocarbamol 750 mg tablet 1,500 mg PO TID Qty: 45 0RF No Action omeprazole 40 mg capsule,delayed release(DR/EC) 40 mg PO DAILY trazodone 50 mg tablet 25 mg PO QHS PRN rosuvastatin 10 mg tablet 10 mg PO DAILY omega-3 fatty acids 1,000 mg capsule 1,000 mg PO DAILY coenzyme Q10 10 mg capsule 10 mg PO BID ibuprofen 600 mg tablet 600 mg PO Q6H cholecalciferol (vitamin D3) 25 mcg (1,000 unit) capsule 25 mcg PO DAILY methocarbamol 750 mg Tablet 750 mg PO HS PRN (Reason: Sleep) multivitamin Tablet 1 tablet PO DAILY magnesium 200 mg tablet 400 mg PO DAILY dutasteride 0.5 mg Capsule 0.5 mg PO DAILY Follow-up/Referrals: Winsome,Ollie Aragon MD [Primary Care Provider, Unknown] John Griffin PA [Physician It Technician, Orthopedics] - 3 Days Referral Note: Shoulder pain
--- OUTSIDE RECORDS SUMMARY | 2025-03-29 01:14 | XMS_ITS | Encounter Summary ---
Author Organization [facility] Care Team Providers Care Supervisor Steno Pool Name Role Phone Alejandro Driscoll MD Primary Care Provider [phone] Ollie Schumacher MD Primary Care Provider Sarah Raines Primary Care Provider + Sarah Raines Primary Care Provider + Ollie Schumacher MD Primary Care Provider [phone] Ollie Schumacher MD Primary Care Provider [phone] Avinash Alaniz MD Unavailable [phone] Encounter Details Date Type Department Care Team (Latest Contact Info) Description 04/20/2017 Orders Only [facility] ProviderJonathon MD [address] [place] [id number] Social History Tobacco Use Types Packs/Day Years Used Date Smoking Tobacco: Never Assessed Sex and Gender Information Value Date Recorded Sex Assigned at Not on file 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 us Historical Provider [facility] VERA LYONS Final Result documented in this encounter Visit Diagnoses Not on filedocumented in this encounter Care Teams Supervisor Steno Pool Relationship Specialty Start Date End Date Alejandro Driscoll MD PCP - General Internal Medicine 10/07/18 10/24/18 Ollie Schumacher MD PCP - General Family Medicine 10/25/18 08/28/19 Sarah Raines PA PCP - General 09/15/19 11/03/20 Sarah Raines PA PCP - General 08/29/19 09/14/19 Ollie Schumacher MD PCP - General Family Medicine 11/04/20 03/23/23 Ollie Schumacher MD PCP - General Family Medicine 03/24/23 Avinash Alaniz MD [address] [place] [address] Cardiology 10/10/24 documented as of this encounter
--- OUTSIDE RECORDS SUMMARY | 2025-03-29 01:14 | XMS_ITS | Encounter Summary ---
Author Organization [facility] Care Team Providers Care Lumber Material Handler Name Role Phone Alejandro Driscoll MD Primary Care Provider [phone] Ollie Schumacher MD Primary Care Provider Sarah Raines Primary Care Provider + Sarah Raines Primary Care Provider + Ollie Schumacher MD Primary Care Provider [phone] Ollie Schumacher MD Primary Care Provider [phone] Avinash Alaniz MD Unavailable Encounter Details Date Type Department Care Team (Latest Contact Info) Description 03/09/2018 Orders Only [facility] CLINCON[facility] ProviderJonathon MD [address] [place] [id number] Social History Tobacco Use Types Packs/Day Years Used Date Smoking Tobacco: Never Assessed Sex and Gender Information Value Date Recorded Sex Assigned at Not on file 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 us Historical Provider Final Res ult documented in this encounter Visit Diagnoses Not on filedocumented in this encounter Care Teams Lumber Material Handler Relationship Specialty Start Date End Date Alejandro [...] Family Medicine 03/24/23 Avinash Alaniz MD [address] [place] [address] Cardiology 10/10/24 documented as of this encounter
--- OUTSIDE RECORDS SUMMARY | 2025-03-29 01:14 | XMS_ITS | Encounter Summary ---
Author Organization [facility] Facility Care Team Providers Care Didactic Program In Dietetics Director Name Role Phone Alejandro Driscoll MD Primary Care Provider [phone] Ollie Schumacher MD Primary Care Provider [phone] Sarah Raines Primary Care Provider + Sarah Raines Primary Care Provider + Ollie Schumacher MD Primary Care Provider [phone] Ollie Shcumacher MD Primary Care Provider [phone] Avinash Alaniz MD Unavailable [phone] Encounter Details Date Type Department Care Team (Latest Contact Info) Description 04/07/2017 Orders Only [facility] ProviderJonathon MD [address] [place] [address] Social History Tobacco Use Types Packs/Day Years Used Date Smoking Tobacco: Never Assessed Sex and Gender Information Value Date Recorded Sex Assigned at Not on file 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 us Historical Provider Final Res ult documented in this encounter Visit Diagnoses Not on filedocumented in this encounter Care Teams Didactic Program In Dietetics Director Relationship Specialty Start Date End Date Alejandro [...] Family Medicine 03/24/23 Avinash Alaniz MD [address] [facility] [address] [place] [address] Cardiology 10/10/24 documented as of this encounter
--- OUTSIDE RECORDS SUMMARY | 2025-03-29 01:14 | XMS_ITS | Encounter Summary ---
Author Organization [facility] Facility Care Team Providers Care Ear Muff Assembler Name Role Phone Alejandro Driscoll MD Primary Care Provider [phone] Ollie Schumacher MD Primary Care Provider Sarah Raines Primary Care Provider + Sarah Raines Primary Care Provider + Ollie Schumacher MD Primary Care Provider [phone] Ollie Schumacher MD Primary Care Provider [phone] Avinash Alaniz MD Unavailable [phone] Encounter Details Date Type Department Care Team (Latest Contact Info) Description 09/28/2018 Orders Only [facility] ProviderJonathon MD [address] [place] [address] Social History Tobacco Use Types Packs/Day Years Used Date Smoking Tobacco: Never Assessed Sex and Gender Information Value Date Recorded Sex Assigned at Not on file 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 us Historical Provider Final Res ult documented in this encounter Visit Diagnoses Not on filedocumented in this encounter Care Teams Ear Muff Assembler Relationship Specialty Start Date End Date Alejandro [...] Family Medicine 03/24/23 Avinash Alaniz MD [address] [facility] [place] [address] Cardiology 10/10/24 documented as of this encounter
--- OUTSIDE RECORDS SUMMARY | 2025-03-29 01:14 | XMS_ITS | Encounter Summary ---
Author Organization [facility] Facility Care Team Providers Care Classifier Operator Name Role Phone Alejandro Driscoll MD Primary Care Provider [phone] Ollie Schumacher MD Primary Care Provider Sarah Raines Primary Care Provider + Sarah Raines Primary Care Provider + Ollie Schumacher MD Primary Care Provider [phone] Ollie Schumacher MD Primary Care Provider [phone] Avinash Alaniz MD Unavailable Encounter Details Date Type Department Care Team (Latest Contact Info) Description 11/19/2017 Orders Only [facility] ProviderJonathon MD [address] [place] [address] Social History Tobacco Use Types Packs/Day Years Used Date Smoking Tobacco: Never Assessed Sex and Gender Information Value Date Recorded Sex Assigned at Not on file 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 us Historical Provider Final Res ult documented in this encounter Visit Diagnoses Not on filedocumented in this encounter Care Teams Classifier Operator Relationship Specialty Start Date End Date Alejandro [...] Family Medicine 03/24/23 Avinash Alaniz MD [address] [place] [address] Cardiology 10/10/24 documented as of this encounter
--- OUTSIDE RECORDS SUMMARY | 2025-03-29 01:14 | XMS_ITS | Encounter Summary ---
Author Organization [facility] Facility Care Team Providers Care Executive Pastry Chef Name Role Phone Alejandro Driscoll MD Primary Care Provider [phone] Ollie Schumacher MD Primary Care Provider Sarah Raines Primary Care Provider + Sarah Raines Primary Care Provider + Ollie Schumacher MD Primary Care Provider [phone] Ollie Schumacher MD Primary Care Provider [phone] Avinash Alaniz MD Unavailable [phone] Encounter Details Date Type Department Care Team (Latest Contact Info) Description 04/19/2017 Orders Only [facility] ProviderJonathon MD [address] [place] [address] Social History Tobacco Use Types Packs/Day Years Used Date Smoking Tobacco: Never Assessed Sex and Gender Information Value Date Recorded Sex Assigned at Not on file 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 us Historical Provider [facility] Final Result documented in this encounter Visit Diagnoses Not on filedocumented in this encounter Care Teams Executive Pastry Chef Relationship Specialty Start Date End Date Alejandro [...] Family Medicine 03/24/23 Avinash Alaniz MD [address] [facility] [address] [facility] [place] [address] Cardiology 10/10/24 documented as of this encounter
--- OUTSIDE RECORDS SUMMARY | 2025-03-29 01:14 | XMS_ITS | Encounter Summary ---
Author Organization [facility] Healthcare Address [address] [place] [address] Care Team Providers Care Product Communications Manager Name Role Phone Ollie Schumacher MD Primary Care Provider [phone] Avinash Alaniz MD Unavailable [phone] Encounter Details Date Type Department Care Team (Late st Contact Info) Description 08/16/2024 Orders Only [facility] Health Information Management [address] [place] [address] Ollie Schumacher MD [facility] [address] Social History Tobacco Use Types Packs/Day Years Used Date Smoking Tobacco: Former Cigarettes Q uit: 1980 Smokeless Tobacco: Former Chew Alcohol Use Standard Drinks/Week Comments Never 0 (1 standard drink = 0.6 oz pur e alcohol) AUDIT-C Answer Date Recorded Frequency of Alcohol Consumption Not on file 10/18/2022 Q2: How many drinks containi ng alcohol do you have on a typical day when you are drinking? Patient does not drink Frequency of Binge Drinking Not on file 09/2022 PHQ-2 Answer Date Recorded PHQ-2 Total Score (If total score is 3 or more points, staff should administer the PHQ-9) 0 02/22/2024 Personal Safety Answer Date Recorded Have you ever been in or are you currently in a harmful physical or emotional relationship or is someone making you feel afraid or unsafe? 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 Gender Identity Male 01/21/2020 8:51 AM CDT Sexual Orientation Not on file Occupation Industry Job Start Date Job End Date Retired Not on file Not on file Not on file documented as of this encounter Plan of Treatment Not on file documented as of this encounter Procedures Procedure Name Priority Date/Time Associated Diagnosis Comments SCAN - PATHOLOGY 08/16/2024 documented in this encounter Results * SCAN - PATHOLOGY (08/16/2024) us Ollie Schumacher MD Final Result documented in this encounter Visit Diagnoses Not on filedocumented in this encounter Care Teams Product Communications Manager Relationship Specialty Start Date End Date Ollie Schumacher MD PCP - General Family Medicine 03/24/23 Avinash Alaniz MD [address] [address] Cardiology 10/10/24 documented as of this encounter
--- OUTSIDE RECORDS SUMMARY | 2025-03-29 01:14 | XMS_ITS | Encounter Summary ---
Author Organization [facility] Facility Care Team Providers Care Steward/Stewardess Second Name Role Phone Alejandro Driscoll MD Primary Care Provider [phone] Ollie Schumacher MD Primary Care Provider Sarah Raines Primary Care Provider + Sarah Raines Primary Care Provider + Ollie Schumacher MD Primary Care Provider [phone] Ollie Schumacher MD Primary Care Provider [phone] Avinash Alaniz MD Unavailable [phone] Encounter Details Date Type Department Care Team (Latest Contact Info) Description 04/05/2017 Orders Only [facility] ProviderJonathon MD [address] [place] [address] Social History Tobacco Use Types Packs/Day Years Used Date Smoking Tobacco: Never Assessed Sex and Gender Information Value Date Recorded Sex Assigned at Not on file 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 us Historical Provider [facility] Final Result documented in this encounter Visit Diagnoses Not on filedocumented in this encounter Care Teams Steward/Stewardess Second Relationship Specialty Start Date End Date Alejandro [...] Medicine 03/24/23 Avinash Alaniz MD [address] [address] [place] [address] Cardiology 10/10/24 documented as of this encounter
--- OUTSIDE RECORDS SUMMARY | 2025-03-29 01:14 | XMS_ITS | Encounter Summary ---
Author Organization [facility] Care Team Providers Care Adapted Physical Education Teacher Name Role Phone Alejandro Driscoll MD Primary Care Provider [phone] Ollie Schumacher MD Primary Care Provider [phone] Sarah Raines Primary Care Provider + Sarah Raines Primary Care Provider + Ollie Schumacher MD Primary Care Provider [phone] Ollie Schumacher MD Primary Care Provider [phone] Avinash Alaniz MD Unavailable Encounter Details Date Type Department Care Team (Latest Contact Info) Description 08/08/2017 Orders Only [facility] ProviderJonathon MD [address] [place] [address] Social History Tobacco Use Types Packs/Day Years Used Date Smoking Tobacco: Never Assessed Sex and Gender Information Value Date Recorded Sex Assigned at Not on file 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 Historical Provider Final Res ult * SCAN - LABS (08/24/2017 12:00 AM TOOLROOM CLERK) Narrative 08/24/2017 12:00 AM TOOLROOM CLERK Ordered by an unspecified provider. Historical Provider Final Res ult documented in this encounter Visit Diagnoses Not on filedocumented in this encounter Care Teams Adapted Physical Education Teacher Relationship Specialty Start Date End Date Aeljandro Driscoll MD PCP - General Internal Medicine 10/07/18 10/24/18 Ollie Schumacher MD PCP - General Family Medicine 10/25/18 08/28/19 Sarah Raines PA PCP - General 09/15/19 11/03/20 Sarah Raines PA PCP - General 08/29/19 09/14/19 Ollie Schumacher MD PCP - General Family Medicine 11/04/20 03/23/23 Ollie Schumacher MD PCP - General Family Medicine 03/24/23 Avinash Alaniz MD [address] [facility] [place] [address] Cardiology 10/10/24 documented as of this encounter
--- OUTSIDE RECORDS SUMMARY | 2025-03-29 01:14 | XMS_ITS | Clinical Summary ---
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 antibody (03/19/2022 8:01 AM CDT) Hep C Ab <0.1 0.0 - 0.9 s/co ratio [facility] - 01 Comment: Negative: < 0.8 Indeterminate: 0.8 - 0.9 Positive: > 0.9 HCV antibody alone does not differentiate between previous resolved infection and active infection. The CDC and current clinical guidelines recommend that a positive HCV antibody result be followed up with an HCV RNA test to support the diagnosis of acute HCV infection. [facility] Hepatitis C Virus (HCV) RNA, Diagnosis, KIMMY (284042) and Hepatitis C Virus (HCV) Antibody with reflex to Quantitative Real-time PCR ([id number]). Blood specimen (specimen) 03/19/2022 8:01 AM CDT 03/19/2022 Narrative [facility] - 03/20/2022 7:36 AM CDT Performed at: 01 - [address] [id number] Mortuary Technician: Malcom Pagan PhD, Phone: [phone] Ollie Schumacher MD LAB MICROBIOLOGY - GENERAL OR DERABLES Final Result Performing Organization Address City/State/[facility] Co de Phone Number [facility] from Last 3 Months or Most Recently Relevant to Health Maintenance Insurance [facility] MEDICARE ADVANTAGE MEDICARE ADVANTAGE UHC MEDICARE ADVANTAGE Advance Directives For more information, please contact: [phone] Documents on File Type Date Recorded 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 [place] [address] Cardiology 10/10/24
[2025-03-29] MEDS: ACETAMINOPHEN 500 MG TABLET 1000 MG PO (01:19)
[2025-03-29] MEDS: oxyCODONE HCL (*CRX) 5 MG TAB IR PO (01:20)
[2025-03-29] MEDS: LIDOCAINE 5% PATCH 1 PATCH TRANSDERM (01:21)
[2025-03-29 02:56] VITALS: BP 100/58; PULSE 67; RESP 14; O2SAT 100
== END 2025-03-29 02:57 | disposition home or self-care (01) ==
PROVIDERS: Emergency Provider Emergency Medicine; PCP Family Medicine
DX: M25.512 Pain in left shoulder (principal); Z87.891 Personal history of nicotine dependence
CPT/HCPCS: 71045; 73030; 99283; A9270